=== PATIENT | male | born 1995 ===

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

== ENCOUNTER 2017-06-07 15:33 | Emergency (ER) | payer MEDICAID ==
[2017-06-07 15:33] VITALS: BMI 21.7
[2017-06-07 15:54] VITALS: BP 142/85; PULSE 107; RESP 18; TEMP 99; O2SAT 97
--- NOTE | 2017-06-07 16:18 | ED PDOC ---
HPI: Skin/Bite Injury Time Seen by Provider: 06/07/17 15:59 Chief Complaint (Nursing): Trauma Chief Complaint (Provider): Laceration History Per: Patient Additional Complaint(s): Pt is a 21 yo male, no PMH, playing basket ball hit top of head against metal pole. +bleeding pressure drsg applied. denies loc. +laceration right top of head. +dried blood to head. No headache, dizziness, nausea or vomiting. Past Medical History Reviewed: Nursing Documentation, Vital Signs Vital Signs: Last Vital Signs Temp 99 F 06/07/17 15:50 Pulse 107 H 06/07/17 15:50 Resp 18 06/07/17 15:50 BP 142/85 06/07/17 15:50 Pulse Ox 97 06/07/17 16:18 - Medical History PMH: No Chronic Diseases - Surgical History Surgical History: No Surg Hx - Family History Family History: States: Unknown Family Hx, Diabetes - Living Arrangements Living Arrangements: With Family - Social History Current smoker - smoking cessation education provided: No Alcohol: None Drugs: Denies - Immunization History Hx Tetanus Toxoid Vaccination: Yes Hx Influenza Vaccination: No Hx Pneumococcal Vaccination: No - Home Medications Home Medications: Ambulatory Orders Medication Instructions Recorded No Known Home Med 09/14/16 - Allergies Allergies/Adverse Reactions: Allergies Allergy/AdvReac Type Severity Reaction Status Date / Time pollen extracts Allergy CONGESTION Verified 09/14/16 18:50 Review of Systems ROS Statement: Except As Marked, All Systems Reviewed And Found Negative Neurological: Positive for: Headache Physical Exam - Reviewed Nursing Documentation Reviewed: Yes Vital Signs Reviewed: Yes - Physical Exam Appears: Positive for: Well, Non-toxic, No Acute Distress Head Exam: Positive for: NORMAL INSPECTION, NORMOCEPHALIC. Negative for: ATRAUMATIC (4 cm laceration to frontal scalp, above hairline. no active bleed) Skin: Positive for: Normal Color, Warm, DRY Eye Exam: Positive for: EOMI, Normal appearance, PERRL ENT: Positive for: Normal ENT Inspection Neck: Positive for: Normal, Painless ROM Cardiovascular/Chest: Positive for: Regular Rate, Rhythm Respiratory: Positive for: CNT, Normal Breath Sounds Gastrointestinal/Abdominal: Positive for: Normal Exam, Bowel Sounds, Soft Back: Positive for: Normal Inspection Extremity: Positive for: Normal ROM Neurologic/Psych: Positive for: Alert, Oriented - ECG O2 Sat by Pulse Oximetry: 97 Medical Decision Making Medical Decision Making: Laceration repaired by health underwriter. see note wound care discussed with [facility]aretakers and Pt. CT scan not clinically indicated at this time. Disposition - Clinical Impression Clinical Impression: Head injury, Scalp laceration - Patient ED Disposition Is Patient to be Admitted: No - Disposition Disposition: Routine/Home Disposition Time: 17:06 Condition: STABLE Additional Instructions: Staple removal in 7-10 days Instructions: Head Injury (ED), Laceration (ED) Forms: [employer] (Uzbek) Laceration - Laceration Repair No standard instances Wound Length (In cm): 4 Description Of Wound: Linear Wound Cleansed With: Sterile Saline Wound Closure: [place] Suture Technique And Material Used: Interrupted (4) Wound Complexity: Simple
== END 2017-06-07 17:15 | disposition home or self-care (01) ==
LOC: H.ER 15:33
DX: S01.01XA Laceration without foreign body of scalp, initial encounter (principal); W22.8XXA Striking against or struck by other objects, initial encounter; Y92.89 Other specified places as the place of occurrence of the external cause

== ENCOUNTER 2018-01-12 06:01 | Emergency (ER) | payer OTHER, MEDICAID ==
[2018-01-12 06:02] VITALS: BMI 21.7
--- NOTE | 2018-01-12 07:27 | ED PDOC ---
Upper Extremity Pain/Injury Time Seen by Provider: 01/12/18 07:08 Chief Complaint (Nursing): Finger,Hand,&Wrist Chief Complaint (Provider): Cut finger History Per: Patient History/Exam Limitations: no limitations Onset/Duration Of Symptoms: Days (yesterday 11pm) Current Symptoms Are (Timing): Still Present Additional Complaint(s): Pt. 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 Cleaned the area right away. No numbness, tingles, weakness. Full ROM. Mild pain to the left middle finger. No injury elsewhere. Tdap utd in last 10 years. Past Medical History Reviewed: Nursing Documentation, Vital Signs Vital Signs: Last Vital Signs Temp 98.2 F 01/12/18 06:27 Pulse 63 01/12/18 06:27 Resp 18 01/12/18 06:27 BP 146/81 01/12/18 06:27 Pulse Ox 98 01/12/18 06:27 - Medical History PMH: No Chronic Diseases - Surgical History Surgical History: No Surg Hx - Family History Family History: States: Unknown Family Hx - Social History Alcohol: None Drugs: Denies - Immunization History Hx Tetanus Toxoid Vaccination: Yes Hx Influenza Vaccination: No Hx Pneumococcal Vaccination: No - Home Medications Home Medications: Ambulatory Orders Medication Instructions Recorded No Known Home Med 09/14/16 - Allergies Allergies/Adverse Reactions: Allergies Allergy/AdvReac Type Severity Reaction Status Date / Time pollen extracts Allergy CONGESTION Verified 09/14/16 18:50 Review of Systems Constitutional: Negative for: Weakness Cardiovascular: Negative for: Chest Pain Respiratory: Negative for: Shortness of Breath Musculoskeletal: Positive for: Other (finger lacercation). Negative for: Neck Pain Skin: Negative for: Rash Neurological: Negative for: Weakness, Numbness Physical Exam - Reviewed Nursing Documentation Reviewed: Yes Vital Signs Reviewed: Yes - Physical Exam Neck: Positive for: Normal, Painless ROM Cardiovascular/Chest: Positive for: Regular Rate, Rhythm Respiratory: Positive for: Normal Breath Sounds Pulses-Radial (L): 2+ Back: Positive for: Normal Inspection Extremity: Positive for: Normal ROM, Tenderness (mild at DIP of left middle finger; DIP left middle finger with curved, superficial laceration 2cm length; no adipose tissue exposure; no tendon exposure.) Neurologic/Psych: Positive for: Alert - ECG O2 Sat by Pulse Oximetry: 98 Pulse Ox Interpretation: Normal Procedures - Laceration/Wound Repair left middle at DIP Wound Length (cm): 2 Wound's Depth, Shape: superficial, irregular Wound Explored: clean Irrigated w/ Saline (ccs): 500 Betadine Prep?: Yes Wound Repaired With: Skin adhesive Wound Complexity: Simple Progress: Tolerated well. Disposition - Clinical Impression Clinical Impression: Laceration - Patient ED Disposition Is Patient to be Admitted: No - Disposition Referrals: [facility] [Outside] - 01/15/18 Disposition: Routine/Home Disposition Time: 07:30 Condition: STABLE Additional Instructions: Return in 3 days if not better, dc, pain, weakness, not able to move finger around. Instructions: Laceration Repair With Glue (DC) Forms: [facility] (Romanian), [facility] ED School/Work Excuse
[2018-01-12 08:24] VITALS: BP 136/78; PULSE 65; RESP 16; TEMP 98; O2SAT 99
== END 2018-01-12 08:24 | disposition home or self-care (01) ==
LOC: H.ER 06:01
DX: S61.213A Laceration without foreign body of left middle finger without damage to nail, initial encounter (principal); W26.0XXA Contact with knife, initial encounter; Y99.0 Civilian activity done for income or pay